=== PATIENT | male | born 1955 | race Hispanic/Latino ===

== ENCOUNTER 2017-05-03 09:00 | Outpatient (RCR) | payer OTHER ==
[~2017-05-03 09:00] MED LIST: IBUPROFEN200 MG PO; NAPROXEN250 MG PO
== END 2017-05-20 ==
LOC: PT 09:00
PROVIDERS: ATTEND Specialist
DX: M17.12 Unilateral primary osteoarthritis, left knee (principal); M25.562 Pain in left knee; M25.662 Stiffness of left knee, not elsewhere classified; R26.2 Difficulty in walking, not elsewhere classified; M62.81 Muscle weakness (generalized)